=== PATIENT | male | born 1985 | race Two or more races ===

== ENCOUNTER → 2020-12-09 | Day surgery (SDC) | payer OTHER | END | disposition home or self-care (01) | LOC: ADM 12-05 14:15 → AMB-ENDOS 10:04 | PROVIDERS: ATTEND Colon & Rectal Surgery | DX: K57.32 Diverticulitis of large intestine without perforation or abscess without bleeding (principal); K64.2 Third degree hemorrhoids; Z20.822 Contact with and (suspected) exposure to COVID-19 ==

== ENCOUNTER 2024-01-15 15:04 | Emergency (ER) | payer OTHER ==
[~2024-01-15] VITALS: Ht 172.7 cm; Wt 92.1 kg
[2024-01-15] MEDS ORDERED: KEPPRA100 MG/1 M PO (15:19)
[2024-01-15] MEDS ORDERED: ENALAPRILAT DIHYDRATE 1.25 MG/ML VIAL IV ONE ×2 (16:30→16:39)
[2024-01-15 16:45] LABS: HEMATOCRIT 45.5 % (39.0-48.0); HEMOGLOBIN 15.7 g/dL (13-16.00); MEAN CELL VOLUME 88.2 fL (80.0-100.00); MEAN CORPUSCULAR HEMOGLOBIN 30.4 pg (27.00-32.0); MEAN CORPUSCULAR HGB CONC 34.5 g/dl (32.0-36.0); PLATELET COUNT 222 K/uL (150-450); RED BLOOD COUNT 5.15 M/uL (4.00-6.00); RED CELL DISTRIBUTION WIDTH 12.9 % (11.5-14.5)
[2024-01-15 17:11] LABS: ALBUMIN 4.3 gm/dL (3.4-5.0); BILIRUBIN TOTAL 0.44 mg/dL (0.3-1.2); CALCIUM 9.5 mg/dL (8.5-10.1); CREATININE SERUM 1.15 mg/dL (0.70-1.30); GFR 71.55; GLOBULINA 3.5 G/DL (2.4-3.5); POTASSIUM 3.94 mEq/L (3.5-5.1); TOTAL PROTEIN 7.8 gm/dL (6.4-8.2)
[2024-01-15] MEDS ORDERED: CLONIDINE HCL 0.1 MG TABLET PO ONE ×2 (17:50→18:00)
[2024-01-15] MEDS ORDERED: hydrOXYzine PAMOATE 25 MG CAPSULE PO ONE ×2 (17:51→18:00)
[2024-01-15] MEDS ORDERED: LABETALOL HCL 100 MG/20 ML ML IV ONE (19:15)
[2024-01-15] MEDS ORDERED: LABETALOL HCL 100 MG/20 ML ML ONE (19:24)
[2024-01-15] MEDS ORDERED: TOPROL XL25 M1 PO (20:42)
== END 2024-01-15 20:55 ==
LOC: ER 15:04
PROVIDERS: Nurse Practitioner Family
DX: I10 Essential (primary) hypertension (principal); Z20.822 Contact with and (suspected) exposure to COVID-19